=== PATIENT | male | born 1945 | race Caucasian/White ===

== ENCOUNTER 2022-07-10 20:30 | Emergency (ER) | payer MEDICARE, OTHER, MEDICAID ==
[2022-07-10] MEDS ORDERED: Ondansetron 4 MG/2 ML SDV IVPUSH ONE (20:42)
[2022-07-10] MEDS ORDERED: Sodium Chloride 0.9% 10 ML Syringe FLUSH PRN (20:42)
[2022-07-10] MEDS ORDERED: Sodium Chloride 0.9% 2,000 ML IV SCH (20:45)
[2022-07-10 22:32] LABS: CORONAVIRUS COVID-19 NAA NEGATIVE (NEGATIVE)
[2022-07-10] MEDS ORDERED: Azithromycin 500 MG in Sodium Chloride 0.9% 250 ML IV ONE (22:58)
[2022-07-10] MEDS ORDERED: Vancomycin 2 GM in Sodium Chloride 0.9% 500 ML IV ONE (22:59)
[2022-07-10] MEDS ORDERED: Levofloxacin/Dextrose 5%-Water 750 MG in Premix Bag 1 BAG IV ONE (23:01)
[2022-07-10] MEDS ORDERED: Sodium Chloride 0.9% 1,000 ML IV SCH (23:15)
[2022-07-11] MEDS ORDERED: Norepinephrine 4 MG in Dextrose 5% in Water 246 ML IV SCH ×2 (00:30)
== END 2022-07-11 02:25 ==
LOC: JD.ED 20:30
DX: I95.89 Other hypotension (principal); R65.21 Severe sepsis with septic shock; J18.9 Pneumonia, unspecified organism; I10 Essential (primary) hypertension; J44.9 Chronic obstructive pulmonary disease, unspecified; K21.9 Gastro-esophageal reflux disease without esophagitis; E11.9 Type 2 diabetes mellitus without complications; N28.9 Disorder of kidney and ureter, unspecified; Z79.4 Long term (current) use of insulin; Z20.822 Contact with and (suspected) exposure to COVID-19; Z79.899 Other long term (current) drug therapy
CPT/HCPCS: 0241U; 36415; 36556; 71045; 74176; 80053; 83605; 83690; 84484; 85025; 85610; 85730; 86140; 86850; 86900; 86901; 87040; 93005; 96361; 96365; 96366; 96368; 96375; 99285; J0456; J1956; J2405; J3370; J3490; J7030; J7040; J7050; J7060; 93010; 99291

== ENCOUNTER 2022-08-10 12:51 | Emergency (ER) | payer MEDICARE, MEDICAID ==
[2022-08-10] MEDS ORDERED: Sodium Chloride 0.9% 1,000 ML IV STA (13:50)
[2022-08-10] MEDS ORDERED: methylPREDNISolone Sodium Succinate 125 MG/2 ML SDV IVPUSH PRN (16:07)
[2022-08-10] MEDS ORDERED: Famotidine 20 MG/2 ML SDV IVPUSH PRN (16:07)
[2022-08-10] MEDS ORDERED: EPINEPHrine 1 MG/ML SDV IM PRN (16:07)
[2022-08-10] MEDS ORDERED: diphenhydrAMINE 50 MG/ML SDV IVPUSH PRN (16:07)
[2022-08-10] MEDS ORDERED: Sodium Chloride 0.9% 10 ML Syringe FLUSH SCH (16:15)
== END 2022-08-10 18:16 | disposition home or self-care (01) ==
LOC: JD.ED 12:51
DX: U07.1 COVID-19 (principal); J44.9 Chronic obstructive pulmonary disease, unspecified; E78.00 Pure hypercholesterolemia, unspecified; I10 Essential (primary) hypertension; E11.9 Type 2 diabetes mellitus without complications; Z88.1 Allergy status to other antibiotic agents; Z88.0 Allergy status to penicillin; Z88.6 Allergy status to analgesic agent; Z88.8 Allergy status to other drugs, medicaments and biological substances; Z79.4 Long term (current) use of insulin; Z79.899 Other long term (current) drug therapy
CPT/HCPCS: 36415; 51701; 71045; 80053; 81001; 83605; 83735; 85025; 86140; 87040; 96360; 96361; 96372; 99285; J7030; M0222; Q0222; U0002; 99284

== ENCOUNTER 2022-08-27 10:11 | Emergency (ER) | payer MEDICARE, MEDICAID ==
[2022-08-27] MEDS ORDERED: Ondansetron 4 MG/2 ML SDV IVPUSH ONE (10:57)
[2022-08-27] MEDS ORDERED: Sodium Chloride 0.9% 10 ML Syringe FLUSH PRN (10:57)
[2022-08-27] MEDS ORDERED: Sodium Chloride 0.9% 1,000 ML IV SCH (11:00)
[2022-08-27 11:19] LABS: ESTIMATED GFR 77 mL/min (>60)
[2022-08-27 12:13] LABS: CORONAVIRUS COVID-19 NAA POSITIVE (NEGATIVE)
[2022-08-27] MEDS ORDERED: EPINEPHrine 1 MG/ML SDV IM PRN (13:12)
[2022-08-27] MEDS ORDERED: diphenhydrAMINE 50 MG/ML SDV IVPUSH PRN (13:12)
[2022-08-27] MEDS ORDERED: Famotidine 20 MG/2 ML SDV IVPUSH PRN (13:12)
[2022-08-27] MEDS ORDERED: methylPREDNISolone Sodium Succinate 125 MG/2 ML SDV IVPUSH PRN (13:12)
[2022-08-27] MEDS ORDERED: Sodium Chloride 0.9% 10 ML Syringe FLUSH SCH (13:15)
== END 2022-08-27 14:00 | disposition home or self-care (01) ==
LOC: JD.ED 10:11
DX: U07.1 COVID-19 (principal); E78.00 Pure hypercholesterolemia, unspecified; I10 Essential (primary) hypertension; J44.9 Chronic obstructive pulmonary disease, unspecified; K21.9 Gastro-esophageal reflux disease without esophagitis; M10.9 Gout, unspecified; E11.9 Type 2 diabetes mellitus without complications; E03.9 Hypothyroidism, unspecified; Z88.8 Allergy status to other drugs, medicaments and biological substances; Z88.1 Allergy status to other antibiotic agents; Z88.0 Allergy status to penicillin; Z79.4 Long term (current) use of insulin; Z79.899 Other long term (current) drug therapy
CPT/HCPCS: 0241U; 36415; 80053; 82947; 83690; 84484; 85025; 85610; 85730; 86140; 93005; 96361; 96374; 99285; J2405; J3490; J7030; M0222; Q0222

== ENCOUNTER 2022-09-04 15:00 | Inpatient (IN) | payer MEDICARE, MEDICAID ==
[2022-09-05] MEDS ORDERED: busPIRone 15 MG Tab PO ONE (16:42)
[2022-09-05] MEDS ORDERED: Donepezil 10 MG Tab PO ONE (16:44)
[2022-09-05] MEDS ORDERED: QUEtiapine 25 MG Tab PO ONE (16:45)
[2022-09-05] MEDS ORDERED: Acetaminophen Soln 650 MG/20.3 ML UD Cup PO PRN (19:05)
[2022-09-05] MEDS: Enoxaparin 40 MG/0.4 ML Syringe SUBCUT SCH (20:49)
[2022-09-05] MEDS: Metoprolol Tartrate 25 MG Tab PO SCH (20:50)
[2022-09-05] MEDS: Montelukast 10 MG Tab PO SCH (20:50)
[2022-09-05] MEDS: atorvaSTATin 40 MG Tab PO SCH (20:50)
[2022-09-05] MEDS: QUEtiapine 25 MG Tab PO SCH (20:52)
[2022-09-05] MEDS: Acetaminophen 325 MG Tab PO SCH (20:53)
[2022-09-05] MEDS: Donepezil 10 MG Tab PO SCH (20:53)
[2022-09-05] MEDS ORDERED: Gabapentin 600 MG Tab PO SCH (21:00)
[2022-09-05] MEDS ORDERED: Non-Formulary Medication 1 Each (Fluticasone Propion/Salmeterol [Advair Hfa 230-21 Mcg Inh INH SCH (21:00)
[2022-09-05] MEDS ORDERED: rOPINIRole 1 MG Tab PO SCH (21:00)
[2022-09-05] MEDS: Formoterol/Mometasone 200-5 MCG 8.8 GM Inhaler IH SCH (21:39)
[2022-09-06] MEDS: rOPINIRole 1 MG Tab PO SCH ×3 (05:13→21:05)
[2022-09-06] MEDS: Levothyroxine 75 MCG Tab PO SCH (05:13)
[2022-09-06] MEDS: Pantoprazole 40 MG Tab.CR PO SCH (06:01)
[2022-09-06] MEDS: Tiotropium Bromide 4 GM Inhalation Spray (2.5mcg/1 dose; 10 doses) INH SCH (08:07)
[2022-09-06] MEDS: Formoterol/Mometasone 200-5 MCG 8.8 GM Inhaler IH SCH ×2 (08:08→21:10)
[2022-09-06] MEDS: Isosorbide Mononitrate 30 MG Tab.ER PO SCH (08:21)
[2022-09-06] MEDS: Acetaminophen 325 MG Tab PO SCH ×2 (08:24→21:22)
[2022-09-06] MEDS: Cholecalciferol (Vitamin D3) 25 MCG Tab PO SCH (08:25)
[2022-09-06] MEDS: Metoprolol Tartrate 25 MG Tab PO SCH ×2 (08:26→21:04)
[2022-09-06] MEDS: Insulin Lispro 100 Unit/ML 3 ML KwikPen SUBCUT SCH ×4 (08:32→20:55)
[2022-09-06 08:56] LABS: VITAMIN D,25-HYDROXY 23.8 ng/ml (30.0-100.0)
[2022-09-06] MEDS ORDERED: Non-Formulary Medication 1 Each (Umeclidinium Bromide 62.5 MCG Blst.W.Dev) INH SCH (09:00)
[2022-09-06] MEDS ORDERED: QUEtiapine 25 MG Tab PO SCH (09:00)
[2022-09-06] MEDS ORDERED: Gabapentin 100 MG Cap PO SCH (09:00)
[2022-09-06] MEDS ORDERED: Gabapentin 600 MG Tab PO SCH (09:00)
[2022-09-06] MEDS ORDERED: Ondansetron 4 MG Tab.DIS PO PRN (09:59)
[2022-09-06] MEDS ORDERED: Magnesium Sulfate (4.06 MEQ/ML) 5 GM/10 ML SDV IV STA (10:06)
[2022-09-06] MEDS ORDERED: Magnesium Sulfate/Water 2 GM in Premix Bag 1 BAG IV ONE (10:15)
[2022-09-06] MEDS: Magnesium Oxide 400 MG Tab PO SCH (10:29)
[2022-09-06] MEDS ORDERED: Scopolamine 1.5 MG Transdermal Patch TRDERM PRN (15:39)
[2022-09-06] MEDS ORDERED: Citalopram 10 MG Tab PO ONE (16:43)
[2022-09-06] MEDS: Enoxaparin 40 MG/0.4 ML Syringe SUBCUT SCH ×2 (21:04→21:23)
[2022-09-06] MEDS: QUEtiapine 25 MG Tab PO SCH (21:04)
[2022-09-06] MEDS: Donepezil 10 MG Tab PO SCH (21:05)
[2022-09-06] MEDS: Gabapentin 100 MG Cap PO SCH (21:05)
[2022-09-06] MEDS: Gabapentin 600 MG Tab PO SCH (21:05)
[2022-09-06] MEDS: Montelukast 10 MG Tab PO SCH (21:05)
[2022-09-06] MEDS: atorvaSTATin 40 MG Tab PO SCH (21:06)
[2022-09-07] MEDS: Levothyroxine 75 MCG Tab PO SCH (06:13)
[2022-09-07] MEDS: Pantoprazole 40 MG Tab.CR PO SCH (06:13)
[2022-09-07] MEDS: Formoterol/Mometasone 200-5 MCG 8.8 GM Inhaler IH SCH ×2 (09:06→20:58)
[2022-09-07] MEDS: Tiotropium Bromide 4 GM Inhalation Spray (2.5mcg/1 dose; 10 doses) INH SCH (09:06)
[2022-09-07] MEDS: Insulin Lispro 100 Unit/ML 3 ML KwikPen SUBCUT SCH ×4 (09:44→20:19)
[2022-09-07] MEDS: Citalopram 10 MG Tab PO SCH (09:47)
[2022-09-07] MEDS: Isosorbide Mononitrate 30 MG Tab.ER PO SCH (09:48)
[2022-09-07] MEDS: Metoprolol Tartrate 25 MG Tab PO SCH ×2 (09:49→20:20)
[2022-09-07] MEDS: Magnesium Oxide 400 MG Tab PO SCH (09:50)
[2022-09-07] MEDS: Acetaminophen 325 MG Tab PO SCH ×2 (09:51→20:15)
[2022-09-07] MEDS: Cholecalciferol (Vitamin D3) 25 MCG Tab PO SCH (09:52)
[2022-09-07] MEDS: Gabapentin 100 MG Cap PO SCH (20:14)
[2022-09-07] MEDS: QUEtiapine 100 MG Tab PO SCH (20:14)
[2022-09-07] MEDS: Montelukast 10 MG Tab PO SCH (20:15)
[2022-09-07] MEDS: atorvaSTATin 40 MG Tab PO SCH (20:15)
[2022-09-07] MEDS: Donepezil 10 MG Tab PO SCH (20:15)
[2022-09-07] MEDS: rOPINIRole 1 MG Tab PO SCH (20:15)
[2022-09-07] MEDS: Gabapentin 600 MG Tab PO SCH (20:15)
[2022-09-07] MEDS: Enoxaparin 40 MG/0.4 ML Syringe SUBCUT SCH (20:16)
[2022-09-08] MEDS: Levothyroxine 75 MCG Tab PO SCH (06:27)
[2022-09-08] MEDS: Pantoprazole 40 MG Tab.CR PO SCH (06:27)
[2022-09-08] MEDS: Insulin Lispro 100 Unit/ML 3 ML KwikPen SUBCUT SCH ×5 (07:42→22:13)
[2022-09-08] MEDS: Acetaminophen 325 MG Tab PO SCH ×2 (08:29→22:08)
[2022-09-08] MEDS: Metoprolol Tartrate 25 MG Tab PO SCH ×2 (08:31→22:10)
[2022-09-08] MEDS: Magnesium Oxide 400 MG Tab PO SCH (08:31)
[2022-09-08] MEDS: Cholecalciferol (Vitamin D3) 25 MCG Tab PO SCH (08:32)
[2022-09-08] MEDS: Isosorbide Mononitrate 30 MG Tab.ER PO SCH (08:33)
[2022-09-08] MEDS: Citalopram 10 MG Tab PO SCH (08:34)
[2022-09-08] MEDS: Tiotropium Bromide 4 GM Inhalation Spray (2.5mcg/1 dose; 10 doses) INH SCH (08:38)
[2022-09-08] MEDS: Formoterol/Mometasone 200-5 MCG 8.8 GM Inhaler IH SCH ×2 (08:38→21:34)
[2022-09-08] MEDS: Enoxaparin 40 MG/0.4 ML Syringe SUBCUT SCH (22:07)
[2022-09-08] MEDS: Donepezil 10 MG Tab PO SCH (22:08)
[2022-09-08] MEDS: QUEtiapine 100 MG Tab PO SCH (22:08)
[2022-09-08] MEDS: Gabapentin 100 MG Cap PO SCH (22:09)
[2022-09-08] MEDS: Montelukast 10 MG Tab PO SCH (22:09)
[2022-09-08] MEDS: Gabapentin 600 MG Tab PO SCH (22:10)
[2022-09-08] MEDS: atorvaSTATin 40 MG Tab PO SCH (22:10)
[2022-09-08] MEDS: rOPINIRole 1 MG Tab PO SCH (22:10)
[2022-09-09] MEDS: Pantoprazole 40 MG Tab.CR PO SCH (08:24)
[2022-09-09] MEDS: Levothyroxine 125 MCG Tab PO SCH (08:24)
[2022-09-09] MEDS: Tiotropium Bromide 4 GM Inhalation Spray (2.5mcg/1 dose; 10 doses) INH SCH (10:00)
[2022-09-09] MEDS: Formoterol/Mometasone 200-5 MCG 8.8 GM Inhaler IH SCH ×2 (10:00→22:56)
[2022-09-09] MEDS: Cholecalciferol (Vitamin D3) 25 MCG Tab PO SCH (10:11)
[2022-09-09] MEDS: Acetaminophen 325 MG Tab PO SCH ×2 (10:11→20:52)
[2022-09-09] MEDS: Isosorbide Mononitrate 30 MG Tab.ER PO SCH (10:12)
[2022-09-09] MEDS: Citalopram 10 MG Tab PO SCH (10:13)
[2022-09-09] MEDS: Metoprolol Tartrate 25 MG Tab PO SCH ×2 (10:13→20:54)
[2022-09-09] MEDS: Magnesium Oxide 400 MG Tab PO SCH (10:14)
[2022-09-09] MEDS: Insulin Lispro 100 Unit/ML 3 ML KwikPen SUBCUT SCH ×4 (10:25→20:50)
[2022-09-09] MEDS: Gabapentin 600 MG Tab PO SCH (20:53)
[2022-09-09] MEDS: atorvaSTATin 40 MG Tab PO SCH (20:53)
[2022-09-09] MEDS: rOPINIRole 1 MG Tab PO SCH (20:53)
[2022-09-09] MEDS: Montelukast 10 MG Tab PO SCH (20:54)
[2022-09-09] MEDS: Gabapentin 100 MG Cap PO SCH (20:54)
[2022-09-09] MEDS: Donepezil 10 MG Tab PO SCH (20:58)
[2022-09-09] MEDS: Enoxaparin 40 MG/0.4 ML Syringe SUBCUT SCH (20:59)
[2022-09-09] MEDS: QUEtiapine 100 MG Tab PO SCH (20:59)
[2022-09-10] MEDS: Levothyroxine 125 MCG Tab PO SCH (07:11)
[2022-09-10] MEDS: Pantoprazole 40 MG Tab.CR PO SCH (07:11)
[2022-09-10] MEDS: Metoprolol Tartrate 25 MG Tab PO SCH ×2 (09:17→20:28)
[2022-09-10] MEDS: Formoterol/Mometasone 200-5 MCG 8.8 GM Inhaler IH SCH ×2 (09:28→21:03)
[2022-09-10] MEDS: Insulin Lispro 100 Unit/ML 3 ML KwikPen SUBCUT SCH ×4 (09:28→21:30)
[2022-09-10] MEDS: Tiotropium Bromide 4 GM Inhalation Spray (2.5mcg/1 dose; 10 doses) INH SCH (09:28)
[2022-09-10] MEDS: Magnesium Oxide 400 MG Tab PO SCH (09:29)
[2022-09-10] MEDS: Citalopram 10 MG Tab PO SCH (09:29)
[2022-09-10] MEDS: Isosorbide Mononitrate 30 MG Tab.ER PO SCH (09:29)
[2022-09-10] MEDS: Acetaminophen 325 MG Tab PO SCH ×2 (09:30→20:28)
[2022-09-10] MEDS: Cholecalciferol (Vitamin D3) 25 MCG Tab PO SCH (09:30)
[2022-09-10] MEDS: QUEtiapine 100 MG Tab PO SCH (20:22)
[2022-09-10] MEDS: Donepezil 10 MG Tab PO SCH (20:23)
[2022-09-10] MEDS: rOPINIRole 1 MG Tab PO SCH (20:23)
[2022-09-10] MEDS: Gabapentin 100 MG Cap PO SCH (20:24)
[2022-09-10] MEDS: atorvaSTATin 40 MG Tab PO SCH (20:27)
[2022-09-10] MEDS: Gabapentin 600 MG Tab PO SCH (20:27)
[2022-09-10] MEDS: Montelukast 10 MG Tab PO SCH (20:30)
[2022-09-10] MEDS: Enoxaparin 40 MG/0.4 ML Syringe SUBCUT SCH ×2 (20:31→20:32)
[2022-09-11] MEDS: Pantoprazole 40 MG Tab.CR PO SCH (06:29)
[2022-09-11] MEDS: Levothyroxine 125 MCG Tab PO SCH (06:29)
[2022-09-11] MEDS: Tiotropium Bromide 4 GM Inhalation Spray (2.5mcg/1 dose; 10 doses) INH SCH (09:24)
[2022-09-11] MEDS: Formoterol/Mometasone 200-5 MCG 8.8 GM Inhaler IH SCH ×2 (09:24→21:08)
[2022-09-11] MEDS: Insulin Lispro 100 Unit/ML 3 ML KwikPen SUBCUT SCH ×3 (09:28→18:47)
[2022-09-11] MEDS: Magnesium Oxide 400 MG Tab PO SCH (09:29)
[2022-09-11] MEDS: Isosorbide Mononitrate 30 MG Tab.ER PO SCH (09:29)
[2022-09-11] MEDS: Cholecalciferol (Vitamin D3) 25 MCG Tab PO SCH (09:30)
[2022-09-11] MEDS: Metoprolol Tartrate 25 MG Tab PO SCH ×2 (09:31→20:33)
[2022-09-11] MEDS: Citalopram 10 MG Tab PO SCH (09:31)
[2022-09-11] MEDS: Acetaminophen 325 MG Tab PO SCH ×2 (09:31→20:29)
[2022-09-11] MEDS: atorvaSTATin 40 MG Tab PO SCH (20:29)
[2022-09-11] MEDS: rOPINIRole 1 MG Tab PO SCH (20:29)
[2022-09-11] MEDS: QUEtiapine 100 MG Tab PO SCH (20:29)
[2022-09-11] MEDS: Gabapentin 600 MG Tab PO SCH (20:29)
[2022-09-11] MEDS: Gabapentin 100 MG Cap PO SCH (20:29)
[2022-09-11] MEDS: Donepezil 10 MG Tab PO SCH (20:29)
[2022-09-11] MEDS: Enoxaparin 40 MG/0.4 ML Syringe SUBCUT SCH ×2 (20:33→20:40)
[2022-09-11] MEDS: Montelukast 10 MG Tab PO SCH (20:39)
[2022-09-12] MEDS: Tiotropium Bromide 4 GM Inhalation Spray (2.5mcg/1 dose; 10 doses) INH SCH (07:59)
[2022-09-12] MEDS: Formoterol/Mometasone 200-5 MCG 8.8 GM Inhaler IH SCH ×2 (07:59→21:07)
[2022-09-12] MEDS: Insulin Lispro 100 Unit/ML 3 ML KwikPen SUBCUT SCH ×5 (09:11→22:40)
[2022-09-12] MEDS: Citalopram 10 MG Tab PO SCH (09:12)
[2022-09-12] MEDS: Pantoprazole 40 MG Tab.CR PO SCH (09:12)
[2022-09-12] MEDS: Levothyroxine 125 MCG Tab PO SCH (09:12)
[2022-09-12] MEDS: Metoprolol Tartrate 25 MG Tab PO SCH ×2 (09:13→20:42)
[2022-09-12] MEDS: Acetaminophen 325 MG Tab PO SCH ×2 (09:13→20:46)
[2022-09-12] MEDS: Isosorbide Mononitrate 30 MG Tab.ER PO SCH (09:13)
[2022-09-12] MEDS: Magnesium Oxide 400 MG Tab PO SCH (09:13)
[2022-09-12] MEDS: Cholecalciferol (Vitamin D3) 25 MCG Tab PO SCH (09:14)
[2022-09-12] MEDS: Gabapentin 100 MG Cap PO SCH (20:41)
[2022-09-12] MEDS: Enoxaparin 40 MG/0.4 ML Syringe SUBCUT SCH (20:41)
[2022-09-12] MEDS: Gabapentin 600 MG Tab PO SCH (20:41)
[2022-09-12] MEDS: Montelukast 10 MG Tab PO SCH (20:41)
[2022-09-12] MEDS: rOPINIRole 1 MG Tab PO SCH (20:41)
[2022-09-12] MEDS: Donepezil 10 MG Tab PO SCH (20:46)
[2022-09-12] MEDS: QUEtiapine 100 MG Tab PO SCH (20:47)
[2022-09-12] MEDS: atorvaSTATin 40 MG Tab PO SCH (20:47)
[2022-09-13] MEDS: Levothyroxine 125 MCG Tab PO SCH (05:58)
[2022-09-13] MEDS: Pantoprazole 40 MG Tab.CR PO SCH ×2 (05:58→07:43)
[2022-09-13] MEDS: Insulin Lispro 100 Unit/ML 3 ML KwikPen SUBCUT SCH ×3 (07:58→18:14)
[2022-09-13] MEDS: Isosorbide Mononitrate 30 MG Tab.ER PO SCH (08:00)
[2022-09-13] MEDS: Acetaminophen 325 MG Tab PO SCH ×2 (08:02→20:55)
[2022-09-13] MEDS: Metoprolol Tartrate 25 MG Tab PO SCH ×2 (08:03→20:56)
[2022-09-13] MEDS: Citalopram 10 MG Tab PO SCH (08:03)
[2022-09-13] MEDS: Cholecalciferol (Vitamin D3) 25 MCG Tab PO SCH (08:03)
[2022-09-13] MEDS: Magnesium Oxide 400 MG Tab PO SCH (08:03)
[2022-09-13] MEDS: Tiotropium Bromide 4 GM Inhalation Spray (2.5mcg/1 dose; 10 doses) INH SCH (08:10)
[2022-09-13] MEDS: Formoterol/Mometasone 200-5 MCG 8.8 GM Inhaler IH SCH ×2 (08:10→20:19)
[2022-09-13] MEDS: Gabapentin 600 MG Tab PO SCH (20:55)
[2022-09-13] MEDS: QUEtiapine 100 MG Tab PO SCH (20:59)
[2022-09-13] MEDS: rOPINIRole 1 MG Tab PO SCH (21:00)
[2022-09-13] MEDS ORDERED: Insulin Glargine,Human Rec. Analog 100 Units/ML 3 ML Pen SUBCUT SCH (21:00)
[2022-09-13] MEDS: atorvaSTATin 40 MG Tab PO SCH (21:00)
[2022-09-13] MEDS: Montelukast 10 MG Tab PO SCH (21:00)
[2022-09-13] MEDS: Donepezil 10 MG Tab PO SCH (21:00)
[2022-09-13] MEDS: Enoxaparin 40 MG/0.4 ML Syringe SUBCUT SCH (21:01)
[2022-09-13] MEDS: Gabapentin 100 MG Cap PO SCH (21:09)
[2022-09-13] MEDS ORDERED: rOPINIRole 1 MG Tab PO ONE (22:00)
[2022-09-14] MEDS: Acetaminophen 325 MG Tab PO SCH ×2 (08:31→20:00)
[2022-09-14] MEDS: Pantoprazole 40 MG Tab.CR PO SCH (08:33)
[2022-09-14] MEDS: Magnesium Oxide 400 MG Tab PO SCH (08:33)
[2022-09-14] MEDS: Levothyroxine 125 MCG Tab PO SCH (08:33)
[2022-09-14] MEDS: Isosorbide Mononitrate 30 MG Tab.ER PO SCH (08:34)
[2022-09-14] MEDS: Citalopram 10 MG Tab PO SCH (08:34)
[2022-09-14] MEDS: Cholecalciferol (Vitamin D3) 25 MCG Tab PO SCH (08:34)
[2022-09-14] MEDS: Metoprolol Tartrate 25 MG Tab PO SCH ×2 (08:36→20:02)
[2022-09-14] MEDS: Insulin Lispro 100 Unit/ML 3 ML KwikPen SUBCUT SCH ×4 (08:36→20:14)
[2022-09-14] MEDS ORDERED: Insulin Glargine,Human Rec. Analog 100 Units/ML 3 ML Pen SUBCUT SCH ×2 (09:00)
[2022-09-14] MEDS: Tiotropium Bromide 4 GM Inhalation Spray (2.5mcg/1 dose; 10 doses) INH SCH (09:30)
[2022-09-14] MEDS: Formoterol/Mometasone 200-5 MCG 8.8 GM Inhaler IH SCH ×2 (09:30→20:49)
[2022-09-14] MEDS ORDERED: Insulin Aspart Protamine/Insulin Aspart 70-30 100 Units/ML 10 ML Vial SUBCUT SCH (11:00)
[2022-09-14] MEDS ORDERED: Insulin Lispro 100 Unit/ML 3 ML KwikPen SUBCUT SCH (11:30)
[2022-09-14] MEDS: Enoxaparin 40 MG/0.4 ML Syringe SUBCUT SCH (19:59)
[2022-09-14] MEDS: atorvaSTATin 40 MG Tab PO SCH (20:02)
[2022-09-14] MEDS: QUEtiapine 100 MG Tab PO SCH (20:02)
[2022-09-14] MEDS: Gabapentin 600 MG Tab PO SCH (20:03)
[2022-09-14] MEDS: rOPINIRole 1 MG Tab PO SCH (20:03)
[2022-09-14] MEDS: Gabapentin 100 MG Cap PO SCH (20:03)
[2022-09-14] MEDS: Montelukast 10 MG Tab PO SCH (20:03)
[2022-09-14] MEDS: Donepezil 10 MG Tab PO SCH (20:03)
[2022-09-15] MEDS: Levothyroxine 125 MCG Tab PO SCH (07:55)
[2022-09-15] MEDS: Insulin Lispro 100 Unit/ML 3 ML KwikPen SUBCUT SCH ×4 (07:56→22:22)
[2022-09-15] MEDS: Pantoprazole 40 MG Tab.CR PO SCH (07:56)
[2022-09-15] MEDS: Formoterol/Mometasone 200-5 MCG 8.8 GM Inhaler IH SCH ×2 (08:27→20:45)
[2022-09-15] MEDS: Tiotropium Bromide 4 GM Inhalation Spray (2.5mcg/1 dose; 10 doses) INH SCH (08:27)
[2022-09-15] MEDS: Citalopram 10 MG Tab PO SCH (10:44)
[2022-09-15] MEDS: Acetaminophen 325 MG Tab PO SCH ×2 (10:44→22:24)
[2022-09-15] MEDS: Cholecalciferol (Vitamin D3) 25 MCG Tab PO SCH (10:45)
[2022-09-15] MEDS: Isosorbide Mononitrate 30 MG Tab.ER PO SCH (10:45)
[2022-09-15] MEDS: Magnesium Oxide 400 MG Tab PO SCH (10:45)
[2022-09-15] MEDS: Metoprolol Tartrate 25 MG Tab PO SCH ×2 (10:46→22:26)
[2022-09-15] MEDS: QUEtiapine 100 MG Tab PO SCH (22:23)
[2022-09-15] MEDS: Montelukast 10 MG Tab PO SCH (22:23)
[2022-09-15] MEDS: Gabapentin 600 MG Tab PO SCH (22:24)
[2022-09-15] MEDS: Gabapentin 100 MG Cap PO SCH (22:24)
[2022-09-15] MEDS: Donepezil 10 MG Tab PO SCH (22:25)
[2022-09-15] MEDS: rOPINIRole 1 MG Tab PO SCH (22:26)
[2022-09-15] MEDS: atorvaSTATin 40 MG Tab PO SCH (22:26)
[2022-09-15] MEDS: Enoxaparin 40 MG/0.4 ML Syringe SUBCUT SCH (22:29)
[2022-09-16] MEDS: Pantoprazole 40 MG Tab.CR PO SCH (06:47)
[2022-09-16] MEDS: Levothyroxine 125 MCG Tab PO SCH (06:47)
[2022-09-16] MEDS: Formoterol/Mometasone 200-5 MCG 8.8 GM Inhaler IH SCH ×2 (09:23→20:00)
[2022-09-16] MEDS: Tiotropium Bromide 4 GM Inhalation Spray (2.5mcg/1 dose; 10 doses) INH SCH (09:24)
[2022-09-16] MEDS: Isosorbide Mononitrate 30 MG Tab.ER PO SCH (10:09)
[2022-09-16] MEDS: Insulin Lispro 100 Unit/ML 3 ML KwikPen SUBCUT SCH ×4 (10:09→20:52)
[2022-09-16] MEDS: Citalopram 10 MG Tab PO SCH (10:09)
[2022-09-16] MEDS: Magnesium Oxide 400 MG Tab PO SCH (10:10)
[2022-09-16] MEDS: Metoprolol Tartrate 25 MG Tab PO SCH ×2 (10:10→21:13)
[2022-09-16] MEDS: Cholecalciferol (Vitamin D3) 25 MCG Tab PO SCH (10:10)
[2022-09-16] MEDS: Acetaminophen 325 MG Tab PO SCH ×2 (10:10→21:01)
[2022-09-16] MEDS: rOPINIRole 1 MG Tab PO SCH (20:59)
[2022-09-16] MEDS: Gabapentin 100 MG Cap PO SCH (21:01)
[2022-09-16] MEDS: Gabapentin 600 MG Tab PO SCH (21:01)
[2022-09-16] MEDS: Montelukast 10 MG Tab PO SCH (21:02)
[2022-09-16] MEDS: Enoxaparin 40 MG/0.4 ML Syringe SUBCUT SCH (21:03)
[2022-09-16] MEDS: atorvaSTATin 40 MG Tab PO SCH (21:04)
[2022-09-16] MEDS: QUEtiapine 100 MG Tab PO SCH (21:11)
[2022-09-16] MEDS: Donepezil 10 MG Tab PO SCH (21:13)
[2022-09-17] MEDS: Levothyroxine 125 MCG Tab PO SCH (06:47)
[2022-09-17] MEDS: Pantoprazole 40 MG Tab.CR PO SCH (06:47)
[2022-09-17] MEDS: Insulin Lispro 100 Unit/ML 3 ML KwikPen SUBCUT SCH ×4 (06:56→22:23)
[2022-09-17] MEDS: Cholecalciferol (Vitamin D3) 25 MCG Tab PO SCH (08:02)
[2022-09-17] MEDS: Magnesium Oxide 400 MG Tab PO SCH (08:02)
[2022-09-17] MEDS: Isosorbide Mononitrate 30 MG Tab.ER PO SCH (08:03)
[2022-09-17] MEDS: Acetaminophen 325 MG Tab PO SCH ×2 (08:03→22:19)
[2022-09-17] MEDS: Citalopram 10 MG Tab PO SCH (08:03)
[2022-09-17] MEDS: Metoprolol Tartrate 25 MG Tab PO SCH ×2 (08:06→22:23)
[2022-09-17] MEDS: Formoterol/Mometasone 200-5 MCG 8.8 GM Inhaler IH SCH ×2 (08:14→20:42)
[2022-09-17] MEDS: Tiotropium Bromide 4 GM Inhalation Spray (2.5mcg/1 dose; 10 doses) INH SCH (08:14)
[2022-09-17] MEDS: Gabapentin 100 MG Cap PO SCH (22:18)
[2022-09-17] MEDS: Montelukast 10 MG Tab PO SCH (22:18)
[2022-09-17] MEDS: atorvaSTATin 40 MG Tab PO SCH (22:18)
[2022-09-17] MEDS: rOPINIRole 1 MG Tab PO SCH (22:18)
[2022-09-17] MEDS: Gabapentin 600 MG Tab PO SCH (22:19)
[2022-09-17] MEDS: Donepezil 10 MG Tab PO SCH (22:19)
[2022-09-17] MEDS: QUEtiapine 100 MG Tab PO SCH (22:19)
[2022-09-17] MEDS: Enoxaparin 40 MG/0.4 ML Syringe SUBCUT SCH (22:27)
[2022-09-18] MEDS: Levothyroxine 125 MCG Tab PO SCH (06:31)
[2022-09-18] MEDS: Pantoprazole 40 MG Tab.CR PO SCH (06:31)
[2022-09-18] MEDS: Insulin Lispro 100 Unit/ML 3 ML KwikPen SUBCUT SCH ×4 (08:05→20:46)
[2022-09-18] MEDS: Magnesium Oxide 400 MG Tab PO SCH (08:06)
[2022-09-18] MEDS: Acetaminophen 325 MG Tab PO SCH ×2 (08:06→20:45)
[2022-09-18] MEDS: Isosorbide Mononitrate 30 MG Tab.ER PO SCH (08:06)
[2022-09-18] MEDS: Citalopram 10 MG Tab PO SCH (08:06)
[2022-09-18] MEDS: Cholecalciferol (Vitamin D3) 25 MCG Tab PO SCH (08:07)
[2022-09-18] MEDS: Metoprolol Tartrate 25 MG Tab PO SCH ×2 (08:07→20:44)
[2022-09-18] MEDS: Formoterol/Mometasone 200-5 MCG 8.8 GM Inhaler IH SCH ×2 (08:31→20:35)
[2022-09-18] MEDS: Tiotropium Bromide 4 GM Inhalation Spray (2.5mcg/1 dose; 10 doses) INH SCH (08:31)
[2022-09-18] MEDS: rOPINIRole 1 MG Tab PO SCH (20:41)
[2022-09-18] MEDS: Gabapentin 100 MG Cap PO SCH (20:44)
[2022-09-18] MEDS: Gabapentin 600 MG Tab PO SCH (20:44)
[2022-09-18] MEDS: Montelukast 10 MG Tab PO SCH (20:45)
[2022-09-18] MEDS: QUEtiapine 100 MG Tab PO SCH (20:45)
[2022-09-18] MEDS: Donepezil 10 MG Tab PO SCH (20:45)
[2022-09-18] MEDS: Enoxaparin 40 MG/0.4 ML Syringe SUBCUT SCH (20:46)
[2022-09-18] MEDS: atorvaSTATin 40 MG Tab PO SCH (20:46)
[2022-09-19] MEDS: Levothyroxine 125 MCG Tab PO SCH (07:31)
[2022-09-19] MEDS: Pantoprazole 40 MG Tab.CR PO SCH (07:31)
[2022-09-19] MEDS: Tiotropium Bromide 4 GM Inhalation Spray (2.5mcg/1 dose; 10 doses) INH SCH (08:14)
[2022-09-19] MEDS: Formoterol/Mometasone 200-5 MCG 8.8 GM Inhaler IH SCH ×2 (08:14→20:28)
[2022-09-19] MEDS: Insulin Lispro 100 Unit/ML 3 ML KwikPen SUBCUT SCH ×4 (08:42→21:34)
[2022-09-19] MEDS: Citalopram 10 MG Tab PO SCH (08:43)
[2022-09-19] MEDS: Metoprolol Tartrate 25 MG Tab PO SCH ×2 (08:43→21:30)
[2022-09-19] MEDS: Isosorbide Mononitrate 30 MG Tab.ER PO SCH (08:45)
[2022-09-19] MEDS: Acetaminophen 325 MG Tab PO SCH ×2 (08:46→21:28)
[2022-09-19] MEDS: Magnesium Oxide 400 MG Tab PO SCH (08:46)
[2022-09-19] MEDS: Cholecalciferol (Vitamin D3) 25 MCG Tab PO SCH (08:46)
[2022-09-19] MEDS: Gabapentin 100 MG Cap PO SCH (21:28)
[2022-09-19] MEDS: QUEtiapine 100 MG Tab PO SCH (21:29)
[2022-09-19] MEDS: Gabapentin 600 MG Tab PO SCH (21:29)
[2022-09-19] MEDS: rOPINIRole 1 MG Tab PO SCH (21:29)
[2022-09-19] MEDS: Donepezil 10 MG Tab PO SCH (21:29)
[2022-09-19] MEDS: atorvaSTATin 40 MG Tab PO SCH (21:30)
[2022-09-19] MEDS: Enoxaparin 40 MG/0.4 ML Syringe SUBCUT SCH (21:35)
[2022-09-19] MEDS: Montelukast 10 MG Tab PO SCH (21:36)
[2022-09-20] MEDS: Pantoprazole 40 MG Tab.CR PO SCH (07:03)
[2022-09-20] MEDS: Levothyroxine 125 MCG Tab PO SCH (07:03)
[2022-09-20] MEDS: Acetaminophen 325 MG Tab PO SCH ×2 (08:02→21:04)
[2022-09-20] MEDS: Magnesium Oxide 400 MG Tab PO SCH (08:02)
[2022-09-20] MEDS: Metoprolol Tartrate 25 MG Tab PO SCH ×2 (08:03→21:03)
[2022-09-20] MEDS: Cholecalciferol (Vitamin D3) 25 MCG Tab PO SCH (08:03)
[2022-09-20] MEDS: Citalopram 10 MG Tab PO SCH (08:06)
[2022-09-20] MEDS: Isosorbide Mononitrate 30 MG Tab.ER PO SCH (08:06)
[2022-09-20] MEDS: Insulin Lispro 100 Unit/ML 3 ML KwikPen SUBCUT SCH ×4 (08:08→21:05)
[2022-09-20] MEDS: Formoterol/Mometasone 200-5 MCG 8.8 GM Inhaler IH SCH ×2 (08:30→20:36)
[2022-09-20] MEDS: Tiotropium Bromide 4 GM Inhalation Spray (2.5mcg/1 dose; 10 doses) INH SCH (08:30)
[2022-09-20] MEDS: Enoxaparin 40 MG/0.4 ML Syringe SUBCUT SCH (20:34)
[2022-09-20] MEDS: rOPINIRole 1 MG Tab PO SCH (21:01)
[2022-09-20] MEDS: Donepezil 10 MG Tab PO SCH (21:03)
[2022-09-20] MEDS: Gabapentin 100 MG Cap PO SCH (21:03)
[2022-09-20] MEDS: Gabapentin 600 MG Tab PO SCH (21:03)
[2022-09-20] MEDS: QUEtiapine 100 MG Tab PO SCH (21:04)
[2022-09-20] MEDS: atorvaSTATin 40 MG Tab PO SCH (21:04)
[2022-09-20] MEDS: Montelukast 10 MG Tab PO SCH (21:04)
[2022-09-21] MEDS: Levothyroxine 125 MCG Tab PO SCH (06:58)
[2022-09-21] MEDS: Pantoprazole 40 MG Tab.CR PO SCH (06:59)
[2022-09-21] MEDS: Insulin Lispro 100 Unit/ML 3 ML KwikPen SUBCUT SCH ×4 (07:59→20:35)
[2022-09-21] MEDS: Metoprolol Tartrate 25 MG Tab PO SCH ×2 (08:00→20:42)
[2022-09-21] MEDS: Cholecalciferol (Vitamin D3) 25 MCG Tab PO SCH (08:00)
[2022-09-21] MEDS: Magnesium Oxide 400 MG Tab PO SCH (08:00)
[2022-09-21] MEDS: Isosorbide Mononitrate 30 MG Tab.ER PO SCH (08:02)
[2022-09-21] MEDS: Acetaminophen 325 MG Tab PO SCH ×2 (08:02→20:40)
[2022-09-21] MEDS: Citalopram 10 MG Tab PO SCH (08:03)
[2022-09-21] MEDS: Tiotropium Bromide 4 GM Inhalation Spray (2.5mcg/1 dose; 10 doses) INH SCH (09:42)
[2022-09-21] MEDS: Formoterol/Mometasone 200-5 MCG 8.8 GM Inhaler IH SCH ×2 (09:42→21:07)
[2022-09-21] MEDS ORDERED: Insulin Glargine,Human Rec. Analog 100 Units/ML 3 ML Pen SUBCUT SCH (13:45)
[2022-09-21] MEDS: rOPINIRole 1 MG Tab PO SCH (20:39)
[2022-09-21] MEDS: Montelukast 10 MG Tab PO SCH (20:40)
[2022-09-21] MEDS: atorvaSTATin 40 MG Tab PO SCH (20:40)
[2022-09-21] MEDS: Donepezil 10 MG Tab PO SCH (20:41)
[2022-09-21] MEDS: QUEtiapine 100 MG Tab PO SCH (20:42)
[2022-09-21] MEDS: Gabapentin 100 MG Cap PO SCH (20:42)
[2022-09-21] MEDS: Gabapentin 600 MG Tab PO SCH (20:42)
[2022-09-21] MEDS: Enoxaparin 40 MG/0.4 ML Syringe SUBCUT SCH (20:43)
[2022-09-22] MEDS: Levothyroxine 125 MCG Tab PO SCH (06:35)
[2022-09-22] MEDS: Pantoprazole 40 MG Tab.CR PO SCH (06:35)
[2022-09-22] MEDS: Isosorbide Mononitrate 30 MG Tab.ER PO SCH (08:04)
[2022-09-22] MEDS: Magnesium Oxide 400 MG Tab PO SCH (08:05)
[2022-09-22] MEDS: Metoprolol Tartrate 25 MG Tab PO SCH ×2 (08:06→20:37)
[2022-09-22] MEDS: Insulin Lispro 100 Unit/ML 3 ML KwikPen SUBCUT SCH ×2 (08:06→12:48)
[2022-09-22] MEDS: Citalopram 10 MG Tab PO SCH (08:06)
[2022-09-22] MEDS: Cholecalciferol (Vitamin D3) 25 MCG Tab PO SCH (08:06)
[2022-09-22] MEDS: Acetaminophen 325 MG Tab PO SCH ×2 (08:06→20:35)
[2022-09-22] MEDS: Formoterol/Mometasone 200-5 MCG 8.8 GM Inhaler IH SCH ×2 (20:23→22:44)
[2022-09-22] MEDS: atorvaSTATin 40 MG Tab PO SCH (20:35)
[2022-09-22] MEDS: rOPINIRole 1 MG Tab PO SCH (20:35)
[2022-09-22] MEDS: Gabapentin 100 MG Cap PO SCH (20:36)
[2022-09-22] MEDS: QUEtiapine 100 MG Tab PO SCH (20:36)
[2022-09-22] MEDS: Montelukast 10 MG Tab PO SCH (20:36)
[2022-09-22] MEDS: Gabapentin 600 MG Tab PO SCH (20:36)
[2022-09-22] MEDS: Donepezil 10 MG Tab PO SCH (20:37)
[2022-09-22] MEDS: Enoxaparin 40 MG/0.4 ML Syringe SUBCUT SCH (20:55)
[2022-09-22] MEDS: Insulin Glargine,Human Rec. Analog 100 Units/ML 3 ML Pen SUBCUT SCH (21:00)
[2022-09-22] MEDS ORDERED: Insulin Glargine,Human Rec. Analog 100 Units/ML 3 ML Pen SUBCUT SCH (21:00)
[2022-09-22] MEDS: Tiotropium Bromide 4 GM Inhalation Spray (2.5mcg/1 dose; 10 doses) INH SCH (22:44)
[2022-09-23] MEDS: Levothyroxine 125 MCG Tab PO SCH (06:37)
[2022-09-23] MEDS: Pantoprazole 40 MG Tab.CR PO SCH (06:38)
[2022-09-23] MEDS: Insulin Glargine,Human Rec. Analog 100 Units/ML 3 ML Pen SUBCUT SCH ×2 (09:52→20:33)
[2022-09-23] MEDS: Isosorbide Mononitrate 30 MG Tab.ER PO SCH (09:54)
[2022-09-23] MEDS: Magnesium Oxide 400 MG Tab PO SCH (09:55)
[2022-09-23] MEDS: Cholecalciferol (Vitamin D3) 25 MCG Tab PO SCH (09:55)
[2022-09-23] MEDS: Acetaminophen 325 MG Tab PO SCH ×2 (09:56→20:34)
[2022-09-23] MEDS: Metoprolol Tartrate 25 MG Tab PO SCH ×2 (09:56→20:35)
[2022-09-23] MEDS: Citalopram 20 MG Tab PO SCH (09:56)
[2022-09-23] MEDS: Tiotropium Bromide 4 GM Inhalation Spray (2.5mcg/1 dose; 10 doses) INH SCH (10:30)
[2022-09-23] MEDS: Formoterol/Mometasone 200-5 MCG 8.8 GM Inhaler IH SCH ×2 (10:30→20:26)
[2022-09-23] MEDS: rOPINIRole 1 MG Tab PO SCH (20:34)
[2022-09-23] MEDS: Gabapentin 100 MG Cap PO SCH (20:35)
[2022-09-23] MEDS: atorvaSTATin 40 MG Tab PO SCH (20:36)
[2022-09-23] MEDS: Montelukast 10 MG Tab PO SCH (20:36)
[2022-09-23] MEDS: Donepezil 10 MG Tab PO SCH (20:36)
[2022-09-23] MEDS: Gabapentin 600 MG Tab PO SCH (20:36)
[2022-09-23] MEDS: QUEtiapine 100 MG Tab PO SCH (20:36)
[2022-09-23] MEDS: Enoxaparin 40 MG/0.4 ML Syringe SUBCUT SCH (20:37)
[2022-09-24] MEDS: Pantoprazole 40 MG Tab.CR PO SCH (06:02)
[2022-09-24] MEDS: Levothyroxine 125 MCG Tab PO SCH (06:02)
[2022-09-24] MEDS: Cholecalciferol (Vitamin D3) 25 MCG Tab PO SCH (08:06)
[2022-09-24] MEDS: Magnesium Oxide 400 MG Tab PO SCH (08:07)
[2022-09-24] MEDS: Citalopram 20 MG Tab PO SCH (08:07)
[2022-09-24] MEDS: Metoprolol Tartrate 25 MG Tab PO SCH ×2 (08:07→21:00)
[2022-09-24] MEDS: Isosorbide Mononitrate 30 MG Tab.ER PO SCH (08:07)
[2022-09-24] MEDS: Insulin Glargine,Human Rec. Analog 100 Units/ML 3 ML Pen SUBCUT SCH ×2 (08:10→21:03)
[2022-09-24] MEDS: Acetaminophen 325 MG Tab PO SCH ×2 (08:13→20:58)
[2022-09-24] MEDS: Formoterol/Mometasone 200-5 MCG 8.8 GM Inhaler IH SCH ×2 (08:53→20:28)
[2022-09-24] MEDS: Tiotropium Bromide 4 GM Inhalation Spray (2.5mcg/1 dose; 10 doses) INH SCH (08:53)
[2022-09-24] MEDS: rOPINIRole 1 MG Tab PO SCH (20:56)
[2022-09-24] MEDS: Enoxaparin 40 MG/0.4 ML Syringe SUBCUT SCH (20:56)
[2022-09-24] MEDS: Gabapentin 100 MG Cap PO SCH (20:57)
[2022-09-24] MEDS: Gabapentin 600 MG Tab PO SCH (20:57)
[2022-09-24] MEDS: atorvaSTATin 40 MG Tab PO SCH (20:58)
[2022-09-24] MEDS: Montelukast 10 MG Tab PO SCH (20:59)
[2022-09-24] MEDS: QUEtiapine 100 MG Tab PO SCH (21:00)
[2022-09-24] MEDS: Donepezil 10 MG Tab PO SCH (21:00)
[2022-09-25] MEDS: Pantoprazole 40 MG Tab.CR PO SCH (06:04)
[2022-09-25] MEDS: Levothyroxine 125 MCG Tab PO SCH (06:04)
[2022-09-25] MEDS: Insulin Glargine,Human Rec. Analog 100 Units/ML 3 ML Pen SUBCUT SCH ×2 (08:35→20:46)
[2022-09-25] MEDS: Acetaminophen 325 MG Tab PO SCH ×3 (08:38→20:44)
[2022-09-25] MEDS: Magnesium Oxide 400 MG Tab PO SCH (08:38)
[2022-09-25] MEDS: Citalopram 20 MG Tab PO SCH ×2 (08:38→10:29)
[2022-09-25] MEDS: Cholecalciferol (Vitamin D3) 25 MCG Tab PO SCH ×2 (08:38→10:29)
[2022-09-25] MEDS: Metoprolol Tartrate 25 MG Tab PO SCH ×3 (08:47→20:45)
[2022-09-25] MEDS: Tiotropium Bromide 4 GM Inhalation Spray (2.5mcg/1 dose; 10 doses) INH SCH (09:36)
[2022-09-25] MEDS: Formoterol/Mometasone 200-5 MCG 8.8 GM Inhaler IH SCH ×2 (09:36→20:19)
[2022-09-25] MEDS: Isosorbide Mononitrate 30 MG Tab.ER PO SCH (10:28)
[2022-09-25] MEDS: atorvaSTATin 40 MG Tab PO SCH (20:44)
[2022-09-25] MEDS: QUEtiapine 100 MG Tab PO SCH (20:44)
[2022-09-25] MEDS: Montelukast 10 MG Tab PO SCH (20:44)
[2022-09-25] MEDS: rOPINIRole 1 MG Tab PO SCH (20:44)
[2022-09-25] MEDS: Gabapentin 600 MG Tab PO SCH (20:45)
[2022-09-25] MEDS: Gabapentin 100 MG Cap PO SCH (20:45)
[2022-09-25] MEDS: Donepezil 10 MG Tab PO SCH (20:46)
[2022-09-25] MEDS: Enoxaparin 40 MG/0.4 ML Syringe SUBCUT SCH (20:56)
[2022-09-26] MEDS: Levothyroxine 125 MCG Tab PO SCH (06:10)
[2022-09-26] MEDS: Pantoprazole 40 MG Tab.CR PO SCH (06:11)
[2022-09-26] MEDS: Tiotropium Bromide 4 GM Inhalation Spray (2.5mcg/1 dose; 10 doses) INH SCH (08:44)
[2022-09-26] MEDS: Formoterol/Mometasone 200-5 MCG 8.8 GM Inhaler IH SCH ×2 (08:44→20:42)
[2022-09-26] MEDS: Magnesium Oxide 400 MG Tab PO SCH (09:56)
[2022-09-26] MEDS: Metoprolol Tartrate 25 MG Tab PO SCH ×2 (09:56→21:05)
[2022-09-26] MEDS: Acetaminophen 325 MG Tab PO SCH ×2 (09:56→21:04)
[2022-09-26] MEDS: Cholecalciferol (Vitamin D3) 25 MCG Tab PO SCH (09:57)
[2022-09-26] MEDS: Isosorbide Mononitrate 30 MG Tab.ER PO SCH (09:57)
[2022-09-26] MEDS: Insulin Glargine,Human Rec. Analog 100 Units/ML 3 ML Pen SUBCUT SCH ×2 (09:58→21:07)
[2022-09-26] MEDS: Citalopram 20 MG Tab PO SCH (10:04)
[2022-09-26] MEDS: Donepezil 10 MG Tab PO SCH (21:04)
[2022-09-26] MEDS: atorvaSTATin 40 MG Tab PO SCH (21:04)
[2022-09-26] MEDS: rOPINIRole 1 MG Tab PO SCH (21:04)
[2022-09-26] MEDS: Gabapentin 600 MG Tab PO SCH (21:04)
[2022-09-26] MEDS: Montelukast 10 MG Tab PO SCH (21:04)
[2022-09-26] MEDS: Gabapentin 100 MG Cap PO SCH (21:05)
[2022-09-26] MEDS: QUEtiapine 100 MG Tab PO SCH (21:05)
[2022-09-26] MEDS: Enoxaparin 40 MG/0.4 ML Syringe SUBCUT SCH (21:13)
[2022-09-27] MEDS: Pantoprazole 40 MG Tab.CR PO SCH (06:53)
[2022-09-27] MEDS: Levothyroxine 125 MCG Tab PO SCH (06:54)
[2022-09-27] MEDS: Formoterol/Mometasone 200-5 MCG 8.8 GM Inhaler IH SCH ×2 (08:00→20:01)
[2022-09-27] MEDS: Tiotropium Bromide 4 GM Inhalation Spray (2.5mcg/1 dose; 10 doses) INH SCH (08:00)
[2022-09-27] MEDS: Acetaminophen 325 MG Tab PO SCH ×2 (09:37→22:35)
[2022-09-27] MEDS: Citalopram 20 MG Tab PO SCH (09:37)
[2022-09-27] MEDS: Magnesium Oxide 400 MG Tab PO SCH (09:37)
[2022-09-27] MEDS: Isosorbide Mononitrate 30 MG Tab.ER PO SCH (09:39)
[2022-09-27] MEDS: Metoprolol Tartrate 25 MG Tab PO SCH ×2 (09:39→22:32)
[2022-09-27] MEDS: Cholecalciferol (Vitamin D3) 25 MCG Tab PO SCH (09:40)
[2022-09-27] MEDS: Insulin Glargine,Human Rec. Analog 100 Units/ML 3 ML Pen SUBCUT SCH ×2 (09:41→22:30)
[2022-09-27] MEDS: rOPINIRole 1 MG Tab PO SCH (22:33)
[2022-09-27] MEDS: Montelukast 10 MG Tab PO SCH (22:33)
[2022-09-27] MEDS: Gabapentin 600 MG Tab PO SCH (22:34)
[2022-09-27] MEDS: QUEtiapine 100 MG Tab PO SCH (22:34)
[2022-09-27] MEDS: Donepezil 10 MG Tab PO SCH (22:34)
[2022-09-27] MEDS: atorvaSTATin 40 MG Tab PO SCH (22:34)
[2022-09-27] MEDS: Gabapentin 100 MG Cap PO SCH (22:34)
[2022-09-27] MEDS: Enoxaparin 40 MG/0.4 ML Syringe SUBCUT SCH (22:35)
[2022-09-28] MEDS: Pantoprazole 40 MG Tab.CR PO SCH (06:48)
[2022-09-28] MEDS: Levothyroxine 125 MCG Tab PO SCH (06:49)
[2022-09-28] MEDS: Formoterol/Mometasone 200-5 MCG 8.8 GM Inhaler IH SCH ×2 (08:25→20:29)
[2022-09-28] MEDS: Tiotropium Bromide 4 GM Inhalation Spray (2.5mcg/1 dose; 10 doses) INH SCH (08:25)
[2022-09-28] MEDS: Cholecalciferol (Vitamin D3) 25 MCG Tab PO SCH (08:56)
[2022-09-28] MEDS: Acetaminophen 325 MG Tab PO SCH ×2 (08:56→21:25)
[2022-09-28] MEDS: Magnesium Oxide 400 MG Tab PO SCH (08:56)
[2022-09-28] MEDS: Citalopram 20 MG Tab PO SCH (09:05)
[2022-09-28] MEDS: Metoprolol Tartrate 25 MG Tab PO SCH ×2 (09:06→21:21)
[2022-09-28] MEDS: Isosorbide Mononitrate 30 MG Tab.ER PO SCH (09:07)
[2022-09-28] MEDS: Insulin Glargine,Human Rec. Analog 100 Units/ML 3 ML Pen SUBCUT SCH ×2 (09:09→21:20)
[2022-09-28] MEDS: rOPINIRole 1 MG Tab PO SCH (21:24)
[2022-09-28] MEDS: QUEtiapine 100 MG Tab PO SCH (21:25)
[2022-09-28] MEDS: Gabapentin 100 MG Cap PO SCH (21:25)
[2022-09-28] MEDS: Montelukast 10 MG Tab PO SCH (21:25)
[2022-09-28] MEDS: Gabapentin 600 MG Tab PO SCH (21:25)
[2022-09-28] MEDS: Donepezil 10 MG Tab PO SCH (21:26)
[2022-09-28] MEDS: Enoxaparin 40 MG/0.4 ML Syringe SUBCUT SCH (21:26)
[2022-09-28] MEDS: atorvaSTATin 40 MG Tab PO SCH (21:26)
[2022-09-29] MEDS: Levothyroxine 125 MCG Tab PO SCH (07:24)
[2022-09-29] MEDS: Pantoprazole 40 MG Tab.CR PO SCH (07:24)
[2022-09-29] MEDS: Acetaminophen 325 MG Tab PO SCH ×2 (09:33→20:48)
[2022-09-29] MEDS: Isosorbide Mononitrate 30 MG Tab.ER PO SCH (09:34)
[2022-09-29] MEDS: Citalopram 20 MG Tab PO SCH (09:34)
[2022-09-29] MEDS: Insulin Glargine,Human Rec. Analog 100 Units/ML 3 ML Pen SUBCUT SCH ×2 (09:36→21:08)
[2022-09-29] MEDS: Metoprolol Tartrate 25 MG Tab PO SCH ×2 (09:38→20:48)
[2022-09-29] MEDS: Cholecalciferol (Vitamin D3) 25 MCG Tab PO SCH (09:39)
[2022-09-29] MEDS: Magnesium Oxide 400 MG Tab PO SCH (09:39)
[2022-09-29] MEDS: Tiotropium Bromide 4 GM Inhalation Spray (2.5mcg/1 dose; 10 doses) INH SCH (09:49)
[2022-09-29] MEDS: Formoterol/Mometasone 200-5 MCG 8.8 GM Inhaler IH SCH ×2 (09:49→20:27)
[2022-09-29] MEDS: rOPINIRole 1 MG Tab PO SCH ×2 (14:01→20:49)
[2022-09-29] MEDS: Enoxaparin 40 MG/0.4 ML Syringe SUBCUT SCH (20:47)
[2022-09-29] MEDS: Montelukast 10 MG Tab PO SCH (20:48)
[2022-09-29] MEDS: Donepezil 10 MG Tab PO SCH (20:48)
[2022-09-29] MEDS: Gabapentin 100 MG Cap PO SCH (20:48)
[2022-09-29] MEDS: atorvaSTATin 40 MG Tab PO SCH (20:49)
[2022-09-29] MEDS: Gabapentin 600 MG Tab PO SCH (20:49)
[2022-09-29] MEDS: QUEtiapine 100 MG Tab PO SCH (21:09)
[2022-09-30] MEDS: Levothyroxine 125 MCG Tab PO SCH (07:09)
[2022-09-30] MEDS: Pantoprazole 40 MG Tab.CR PO SCH (07:09)
[2022-09-30] MEDS: Tiotropium Bromide 4 GM Inhalation Spray (2.5mcg/1 dose; 10 doses) INH SCH (08:19)
[2022-09-30] MEDS: Formoterol/Mometasone 200-5 MCG 8.8 GM Inhaler IH SCH ×2 (08:19→20:19)
[2022-09-30] MEDS: Isosorbide Mononitrate 30 MG Tab.ER PO SCH (09:55)
[2022-09-30] MEDS: Metoprolol Tartrate 25 MG Tab PO SCH ×2 (09:59→20:35)
[2022-09-30] MEDS: Citalopram 20 MG Tab PO SCH (10:00)
[2022-09-30] MEDS: rOPINIRole 1 MG Tab PO SCH ×2 (10:00→20:33)
[2022-09-30] MEDS: Magnesium Oxide 400 MG Tab PO SCH (10:00)
[2022-09-30] MEDS: Acetaminophen 325 MG Tab PO SCH ×2 (10:00→20:34)
[2022-09-30] MEDS: Insulin Glargine,Human Rec. Analog 100 Units/ML 3 ML Pen SUBCUT SCH ×2 (10:01→20:38)
[2022-09-30] MEDS: Cholecalciferol (Vitamin D3) 25 MCG Tab PO SCH (10:01)
[2022-09-30] MEDS: Enoxaparin 40 MG/0.4 ML Syringe SUBCUT SCH (20:00)
[2022-09-30] MEDS: Montelukast 10 MG Tab PO SCH (20:33)
[2022-09-30] MEDS: Gabapentin 100 MG Cap PO SCH (20:34)
[2022-09-30] MEDS: Gabapentin 600 MG Tab PO SCH (20:34)
[2022-09-30] MEDS: Donepezil 10 MG Tab PO SCH (20:35)
[2022-09-30] MEDS: QUEtiapine 100 MG Tab PO SCH (20:35)
[2022-09-30] MEDS: atorvaSTATin 40 MG Tab PO SCH (20:35)
[2022-10-01] MEDS: Levothyroxine 125 MCG Tab PO SCH (06:34)
[2022-10-01] MEDS: Pantoprazole 40 MG Tab.CR PO SCH (06:34)
[2022-10-01] MEDS: rOPINIRole 1 MG Tab PO SCH ×3 (09:09→22:51)
[2022-10-01] MEDS: Acetaminophen 325 MG Tab PO SCH ×2 (09:10→19:59)
[2022-10-01] MEDS: Cholecalciferol (Vitamin D3) 25 MCG Tab PO SCH (09:10)
[2022-10-01] MEDS: Isosorbide Mononitrate 30 MG Tab.ER PO SCH (09:13)
[2022-10-01] MEDS: Insulin Glargine,Human Rec. Analog 100 Units/ML 3 ML Pen SUBCUT SCH ×2 (09:14→22:00)
[2022-10-01] MEDS: Metoprolol Tartrate 25 MG Tab PO SCH ×3 (09:15→22:50)
[2022-10-01] MEDS: Magnesium Oxide 400 MG Tab PO SCH (09:16)
[2022-10-01] MEDS: Citalopram 20 MG Tab PO SCH (09:17)
[2022-10-01] MEDS: Formoterol/Mometasone 200-5 MCG 8.8 GM Inhaler IH SCH ×2 (09:19→20:23)
[2022-10-01] MEDS: Tiotropium Bromide 4 GM Inhalation Spray (2.5mcg/1 dose; 10 doses) INH SCH (09:19)
[2022-10-01] MEDS: Gabapentin 100 MG Cap PO SCH ×2 (19:57→22:51)
[2022-10-01] MEDS: QUEtiapine 100 MG Tab PO SCH ×2 (19:57→22:51)
[2022-10-01] MEDS: Montelukast 10 MG Tab PO SCH ×2 (19:58→22:51)
[2022-10-01] MEDS: Donepezil 10 MG Tab PO SCH ×2 (19:58→22:50)
[2022-10-01] MEDS: Gabapentin 600 MG Tab PO SCH ×2 (19:58→22:51)
[2022-10-01] MEDS: Enoxaparin 40 MG/0.4 ML Syringe SUBCUT SCH (20:02)
[2022-10-01] MEDS: atorvaSTATin 40 MG Tab PO SCH (22:50)
[2022-10-02] MEDS: Levothyroxine 125 MCG Tab PO SCH (05:55)
[2022-10-02] MEDS: Pantoprazole 40 MG Tab.CR PO SCH ×2 (05:55→06:23)
[2022-10-02] MEDS: Formoterol/Mometasone 200-5 MCG 8.8 GM Inhaler IH SCH ×2 (08:18→20:38)
[2022-10-02] MEDS: Tiotropium Bromide 4 GM Inhalation Spray (2.5mcg/1 dose; 10 doses) INH SCH (08:18)
[2022-10-02] MEDS: Metoprolol Tartrate 25 MG Tab PO SCH ×2 (10:30→20:27)
[2022-10-02] MEDS: Isosorbide Mononitrate 30 MG Tab.ER PO SCH (10:31)
[2022-10-02] MEDS: Citalopram 20 MG Tab PO SCH (10:31)
[2022-10-02] MEDS: Acetaminophen 325 MG Tab PO SCH ×2 (10:32→20:26)
[2022-10-02] MEDS: Cholecalciferol (Vitamin D3) 25 MCG Tab PO SCH (10:32)
[2022-10-02] MEDS: Magnesium Oxide 400 MG Tab PO SCH (10:32)
[2022-10-02] MEDS: Insulin Glargine,Human Rec. Analog 100 Units/ML 3 ML Pen SUBCUT SCH ×2 (10:33→20:31)
[2022-10-02] MEDS: rOPINIRole 1 MG Tab PO SCH ×2 (10:33→20:26)
[2022-10-02] MEDS: Enoxaparin 40 MG/0.4 ML Syringe SUBCUT SCH (20:25)
[2022-10-02] MEDS: Gabapentin 100 MG Cap PO SCH (20:26)
[2022-10-02] MEDS: Donepezil 10 MG Tab PO SCH (20:26)
[2022-10-02] MEDS: QUEtiapine 100 MG Tab PO SCH (20:26)
[2022-10-02] MEDS: Gabapentin 600 MG Tab PO SCH (20:26)
[2022-10-02] MEDS: Montelukast 10 MG Tab PO SCH (20:27)
[2022-10-02] MEDS: atorvaSTATin 40 MG Tab PO SCH (20:27)
[2022-10-03] MEDS: Pantoprazole 40 MG Tab.CR PO SCH (07:09)
[2022-10-03] MEDS: Levothyroxine 125 MCG Tab PO SCH (07:09)
[2022-10-03] MEDS: Tiotropium Bromide 4 GM Inhalation Spray (2.5mcg/1 dose; 10 doses) INH SCH (09:53)
[2022-10-03] MEDS: Formoterol/Mometasone 200-5 MCG 8.8 GM Inhaler IH SCH ×2 (09:53→21:20)
[2022-10-03] MEDS: Acetaminophen 325 MG Tab PO SCH ×2 (10:12→21:37)
[2022-10-03] MEDS: Citalopram 20 MG Tab PO SCH (10:13)
[2022-10-03] MEDS: Cholecalciferol (Vitamin D3) 25 MCG Tab PO SCH (10:14)
[2022-10-03] MEDS: Magnesium Oxide 400 MG Tab PO SCH (10:14)
[2022-10-03] MEDS: Metoprolol Tartrate 25 MG Tab PO SCH ×2 (10:15→21:38)
[2022-10-03] MEDS: rOPINIRole 1 MG Tab PO SCH ×2 (10:18→21:37)
[2022-10-03] MEDS: Isosorbide Mononitrate 30 MG Tab.ER PO SCH (10:18)
[2022-10-03] MEDS: Insulin Glargine,Human Rec. Analog 100 Units/ML 3 ML Pen SUBCUT SCH ×2 (10:28→21:41)
[2022-10-03] MEDS: Enoxaparin 40 MG/0.4 ML Syringe SUBCUT SCH (21:09)
[2022-10-03] MEDS: Gabapentin 600 MG Tab PO SCH (21:37)
[2022-10-03] MEDS: Montelukast 10 MG Tab PO SCH (21:37)
[2022-10-03] MEDS: QUEtiapine 100 MG Tab PO SCH (21:38)
[2022-10-03] MEDS: atorvaSTATin 40 MG Tab PO SCH (21:38)
[2022-10-03] MEDS: Gabapentin 100 MG Cap PO SCH (21:38)
[2022-10-03] MEDS: Donepezil 10 MG Tab PO SCH (21:38)
[2022-10-04] MEDS: Pantoprazole 40 MG Tab.CR PO SCH (07:34)
[2022-10-04] MEDS: Levothyroxine 125 MCG Tab PO SCH (07:35)
[2022-10-04] MEDS: Citalopram 20 MG Tab PO SCH (09:00)
[2022-10-04] MEDS: Metoprolol Tartrate 25 MG Tab PO SCH ×2 (09:00→21:15)
[2022-10-04] MEDS: Magnesium Oxide 400 MG Tab PO SCH (09:00)
[2022-10-04] MEDS: Acetaminophen 325 MG Tab PO SCH ×2 (09:00→20:34)
[2022-10-04] MEDS: Isosorbide Mononitrate 30 MG Tab.ER PO SCH (09:01)
[2022-10-04] MEDS: Cholecalciferol (Vitamin D3) 25 MCG Tab PO SCH (09:04)
[2022-10-04] MEDS: rOPINIRole 1 MG Tab PO SCH ×2 (09:10→20:33)
[2022-10-04] MEDS: Insulin Glargine,Human Rec. Analog 100 Units/ML 3 ML Pen SUBCUT SCH ×2 (09:34→21:14)
[2022-10-04] MEDS: Tiotropium Bromide 4 GM Inhalation Spray (2.5mcg/1 dose; 10 doses) INH SCH (10:20)
[2022-10-04] MEDS: Formoterol/Mometasone 200-5 MCG 8.8 GM Inhaler IH SCH ×2 (10:20→20:35)
[2022-10-04] MEDS: Gabapentin 600 MG Tab PO SCH (20:33)
[2022-10-04] MEDS: QUEtiapine 100 MG Tab PO SCH (20:33)
[2022-10-04] MEDS: Montelukast 10 MG Tab PO SCH (20:34)
[2022-10-04] MEDS: Gabapentin 100 MG Cap PO SCH (20:34)
[2022-10-04] MEDS: Donepezil 10 MG Tab PO SCH (20:34)
[2022-10-04] MEDS: Enoxaparin 40 MG/0.4 ML Syringe SUBCUT SCH (20:41)
[2022-10-04] MEDS: atorvaSTATin 40 MG Tab PO SCH (21:15)
[2022-10-05] MEDS: Levothyroxine 125 MCG Tab PO SCH (06:14)
[2022-10-05] MEDS: Pantoprazole 40 MG Tab.CR PO SCH (06:14)
[2022-10-05] MEDS: Cholecalciferol (Vitamin D3) 25 MCG Tab PO SCH (08:20)
[2022-10-05] MEDS: Magnesium Oxide 400 MG Tab PO SCH (08:21)
[2022-10-05] MEDS: Acetaminophen 325 MG Tab PO SCH ×2 (08:22→20:03)
[2022-10-05] MEDS: rOPINIRole 1 MG Tab PO SCH ×2 (08:23→20:00)
[2022-10-05] MEDS: Metoprolol Tartrate 25 MG Tab PO SCH ×2 (08:24→20:01)
[2022-10-05] MEDS: Isosorbide Mononitrate 30 MG Tab.ER PO SCH (08:25)
[2022-10-05] MEDS: Citalopram 20 MG Tab PO SCH (08:27)
[2022-10-05] MEDS: Insulin Glargine,Human Rec. Analog 100 Units/ML 3 ML Pen SUBCUT SCH ×2 (09:30→20:11)
[2022-10-05] MEDS: Tiotropium Bromide 4 GM Inhalation Spray (2.5mcg/1 dose; 10 doses) INH SCH (11:22)
[2022-10-05] MEDS: Formoterol/Mometasone 200-5 MCG 8.8 GM Inhaler IH SCH ×2 (11:22→22:19)
[2022-10-05] MEDS: Montelukast 10 MG Tab PO SCH (20:01)
[2022-10-05] MEDS: Donepezil 10 MG Tab PO SCH (20:01)
[2022-10-05] MEDS: Gabapentin 600 MG Tab PO SCH (20:01)
[2022-10-05] MEDS: QUEtiapine 100 MG Tab PO SCH (20:01)
[2022-10-05] MEDS: atorvaSTATin 40 MG Tab PO SCH (20:03)
[2022-10-05] MEDS: Gabapentin 100 MG Cap PO SCH (20:03)
[2022-10-05] MEDS: Enoxaparin 40 MG/0.4 ML Syringe SUBCUT SCH (20:34)
[2022-10-05] MEDS ORDERED: OLANZapine 10 MG Vial IM ONE (21:20)
[2022-10-06] MEDS: Pantoprazole 40 MG Tab.CR PO SCH (06:24)
[2022-10-06] MEDS: Levothyroxine 125 MCG Tab PO SCH (06:24)
[2022-10-06] MEDS: Isosorbide Mononitrate 30 MG Tab.ER PO SCH (09:00)
[2022-10-06] MEDS: Insulin Glargine,Human Rec. Analog 100 Units/ML 3 ML Pen SUBCUT SCH ×2 (09:00→22:19)
[2022-10-06] MEDS: Metoprolol Tartrate 25 MG Tab PO SCH ×2 (09:00→23:00)
[2022-10-06] MEDS: Formoterol/Mometasone 200-5 MCG 8.8 GM Inhaler IH SCH ×2 (09:26→20:39)
[2022-10-06] MEDS: Tiotropium Bromide 4 GM Inhalation Spray (2.5mcg/1 dose; 10 doses) INH SCH (09:27)
[2022-10-06] MEDS: Citalopram 20 MG Tab PO SCH (19:32)
[2022-10-06] MEDS: Magnesium Oxide 400 MG Tab PO SCH (19:35)
[2022-10-06] MEDS: Donepezil 10 MG Tab PO SCH (23:00)
[2022-10-06] MEDS: Acetaminophen 325 MG Tab PO SCH ×2 (23:00→23:36)
[2022-10-06] MEDS: rOPINIRole 1 MG Tab PO SCH (23:00)
[2022-10-06] MEDS: atorvaSTATin 40 MG Tab PO SCH (23:00)
[2022-10-06] MEDS: QUEtiapine 100 MG Tab PO SCH (23:00)
[2022-10-06] MEDS: Gabapentin 100 MG Cap PO SCH (23:00)
[2022-10-06] MEDS: Gabapentin 600 MG Tab PO SCH (23:00)
[2022-10-06] MEDS: Montelukast 10 MG Tab PO SCH (23:00)
[2022-10-06] MEDS: Cholecalciferol (Vitamin D3) 25 MCG Tab PO SCH (23:36)
[2022-10-06] MEDS: Enoxaparin 40 MG/0.4 ML Syringe SUBCUT SCH (23:37)
[2022-10-07] MEDS: rOPINIRole 1 MG Tab PO SCH ×2 (03:38→20:52)
[2022-10-07] MEDS: Levothyroxine 125 MCG Tab PO SCH (06:47)
[2022-10-07] MEDS: Pantoprazole 40 MG Tab.CR PO SCH (06:47)
[2022-10-07] MEDS: Metoprolol Tartrate 25 MG Tab PO SCH ×2 (09:00→20:52)
[2022-10-07] MEDS: Formoterol/Mometasone 200-5 MCG 8.8 GM Inhaler IH SCH ×2 (10:00→21:07)
[2022-10-07] MEDS: Tiotropium Bromide 4 GM Inhalation Spray (2.5mcg/1 dose; 10 doses) INH SCH (10:00)
[2022-10-07] MEDS: Acetaminophen 325 MG Tab PO SCH ×2 (10:33→20:52)
[2022-10-07] MEDS: Isosorbide Mononitrate 30 MG Tab.ER PO SCH (10:34)
[2022-10-07] MEDS: Citalopram 20 MG Tab PO SCH (10:39)
[2022-10-07] MEDS: Magnesium Oxide 400 MG Tab PO SCH (10:39)
[2022-10-07] MEDS: Cholecalciferol (Vitamin D3) 25 MCG Tab PO SCH (10:40)
[2022-10-07] MEDS: Insulin Glargine,Human Rec. Analog 100 Units/ML 3 ML Pen SUBCUT SCH ×2 (10:40→21:01)
[2022-10-07] MEDS: Gabapentin 600 MG Tab PO SCH (20:52)
[2022-10-07] MEDS: Gabapentin 100 MG Cap PO SCH (20:52)
[2022-10-07] MEDS: Montelukast 10 MG Tab PO SCH (20:52)
[2022-10-07] MEDS: atorvaSTATin 40 MG Tab PO SCH (20:53)
[2022-10-07] MEDS: QUEtiapine 100 MG Tab PO SCH (20:53)
[2022-10-07] MEDS: Enoxaparin 40 MG/0.4 ML Syringe SUBCUT SCH (20:54)
[2022-10-07] MEDS: Donepezil 10 MG Tab PO SCH (21:01)
[2022-10-08] MEDS: Levothyroxine 125 MCG Tab PO SCH (06:47)
[2022-10-08] MEDS: Pantoprazole 40 MG Tab.CR PO SCH (06:47)
[2022-10-08] MEDS: Acetaminophen 325 MG Tab PO SCH ×2 (10:18→20:23)
[2022-10-08] MEDS: Magnesium Oxide 400 MG Tab PO SCH (10:18)
[2022-10-08] MEDS: Cholecalciferol (Vitamin D3) 25 MCG Tab PO SCH (10:18)
[2022-10-08] MEDS: Citalopram 20 MG Tab PO SCH (10:19)
[2022-10-08] MEDS: rOPINIRole 1 MG Tab PO SCH ×3 (10:19→20:22)
[2022-10-08] MEDS: Insulin Glargine,Human Rec. Analog 100 Units/ML 3 ML Pen SUBCUT SCH ×2 (10:21→20:35)
[2022-10-08] MEDS: Isosorbide Mononitrate 30 MG Tab.ER PO SCH (10:23)
[2022-10-08] MEDS: Metoprolol Tartrate 25 MG Tab PO SCH ×2 (10:23→20:23)
[2022-10-08] MEDS: Tiotropium Bromide 4 GM Inhalation Spray (2.5mcg/1 dose; 10 doses) INH SCH (10:30)
[2022-10-08] MEDS: Formoterol/Mometasone 200-5 MCG 8.8 GM Inhaler IH SCH ×2 (10:30→20:05)
[2022-10-08] MEDS: Gabapentin 100 MG Cap PO SCH (20:22)
[2022-10-08] MEDS: Enoxaparin 40 MG/0.4 ML Syringe SUBCUT SCH (20:22)
[2022-10-08] MEDS: Montelukast 10 MG Tab PO SCH (20:23)
[2022-10-08] MEDS: Gabapentin 600 MG Tab PO SCH (20:23)
[2022-10-08] MEDS: QUEtiapine 100 MG Tab PO SCH (20:23)
[2022-10-08] MEDS: Donepezil 10 MG Tab PO SCH (20:23)
[2022-10-08] MEDS: atorvaSTATin 40 MG Tab PO SCH (20:23)
[2022-10-09] MEDS: Pantoprazole 40 MG Tab.CR PO SCH (06:50)
[2022-10-09] MEDS: Levothyroxine 125 MCG Tab PO SCH (06:50)
[2022-10-09] MEDS: Cholecalciferol (Vitamin D3) 25 MCG Tab PO SCH (09:30)
[2022-10-09] MEDS: Acetaminophen 325 MG Tab PO SCH ×2 (09:30→21:41)
[2022-10-09] MEDS: Citalopram 20 MG Tab PO SCH (09:31)
[2022-10-09] MEDS: Magnesium Oxide 400 MG Tab PO SCH (09:31)
[2022-10-09] MEDS: rOPINIRole 1 MG Tab PO SCH ×2 (09:32→21:40)
[2022-10-09] MEDS: Insulin Glargine,Human Rec. Analog 100 Units/ML 3 ML Pen SUBCUT SCH ×2 (09:32→21:37)
[2022-10-09] MEDS: Metoprolol Tartrate 25 MG Tab PO SCH ×2 (09:44→21:40)
[2022-10-09] MEDS: Formoterol/Mometasone 200-5 MCG 8.8 GM Inhaler IH SCH ×2 (10:35→20:03)
[2022-10-09] MEDS: Tiotropium Bromide 4 GM Inhalation Spray (2.5mcg/1 dose; 10 doses) INH SCH (10:35)
[2022-10-09] MEDS: Gabapentin 600 MG Tab PO SCH (21:40)
[2022-10-09] MEDS: Montelukast 10 MG Tab PO SCH (21:40)
[2022-10-09] MEDS: atorvaSTATin 40 MG Tab PO SCH (21:40)
[2022-10-09] MEDS: Donepezil 10 MG Tab PO SCH (21:41)
[2022-10-09] MEDS: Gabapentin 100 MG Cap PO SCH (21:41)
[2022-10-09] MEDS: Enoxaparin 40 MG/0.4 ML Syringe SUBCUT SCH (21:42)
[2022-10-09] MEDS: QUEtiapine 100 MG Tab PO SCH (21:46)
[2022-10-10] MEDS: Pantoprazole 40 MG Tab.CR PO SCH (06:31)
[2022-10-10] MEDS: Levothyroxine 125 MCG Tab PO SCH (06:31)
[2022-10-10] MEDS: Tiotropium Bromide 4 GM Inhalation Spray (2.5mcg/1 dose; 10 doses) INH SCH (08:31)
[2022-10-10] MEDS: Formoterol/Mometasone 200-5 MCG 8.8 GM Inhaler IH SCH ×2 (08:31→20:47)
[2022-10-10] MEDS: Insulin Glargine,Human Rec. Analog 100 Units/ML 3 ML Pen SUBCUT SCH ×2 (09:44→21:23)
[2022-10-10] MEDS: Cholecalciferol (Vitamin D3) 25 MCG Tab PO SCH (09:45)
[2022-10-10] MEDS: Isosorbide Mononitrate 30 MG Tab.ER PO SCH ×2 (09:48→09:58)
[2022-10-10] MEDS: Acetaminophen 325 MG Tab PO SCH ×2 (09:49→20:35)
[2022-10-10] MEDS: Citalopram 20 MG Tab PO SCH (09:49)
[2022-10-10] MEDS: rOPINIRole 1 MG Tab PO SCH ×2 (09:50→20:35)
[2022-10-10] MEDS: Magnesium Oxide 400 MG Tab PO SCH (09:50)
[2022-10-10] MEDS: Metoprolol Tartrate 25 MG Tab PO SCH ×2 (09:50→20:36)
[2022-10-10] MEDS: Montelukast 10 MG Tab PO SCH (20:35)
[2022-10-10] MEDS: atorvaSTATin 40 MG Tab PO SCH (20:35)
[2022-10-10] MEDS: Gabapentin 100 MG Cap PO SCH (20:36)
[2022-10-10] MEDS: Gabapentin 600 MG Tab PO SCH (20:36)
[2022-10-10] MEDS: QUEtiapine 100 MG Tab PO SCH (20:36)
[2022-10-10] MEDS: Donepezil 10 MG Tab PO SCH (20:40)
[2022-10-10] MEDS: Enoxaparin 40 MG/0.4 ML Syringe SUBCUT SCH (20:43)
[2022-10-11] MEDS: Levothyroxine 125 MCG Tab PO SCH (06:19)
[2022-10-11] MEDS: Pantoprazole 40 MG Tab.CR PO SCH (06:19)
[2022-10-11] MEDS: Tiotropium Bromide 4 GM Inhalation Spray (2.5mcg/1 dose; 10 doses) INH SCH (08:18)
[2022-10-11] MEDS: Formoterol/Mometasone 200-5 MCG 8.8 GM Inhaler IH SCH ×2 (08:18→21:18)
[2022-10-11] MEDS: Insulin Glargine,Human Rec. Analog 100 Units/ML 3 ML Pen SUBCUT SCH ×2 (10:10→22:20)
[2022-10-11] MEDS: Isosorbide Mononitrate 30 MG Tab.ER PO SCH (10:12)
[2022-10-11] MEDS: Magnesium Oxide 400 MG Tab PO SCH (10:12)
[2022-10-11] MEDS: Metoprolol Tartrate 25 MG Tab PO SCH ×2 (10:12→20:25)
[2022-10-11] MEDS: Citalopram 20 MG Tab PO SCH (10:12)
[2022-10-11] MEDS: Cholecalciferol (Vitamin D3) 25 MCG Tab PO SCH (10:13)
[2022-10-11] MEDS: Acetaminophen 325 MG Tab PO SCH ×2 (10:13→20:30)
[2022-10-11] MEDS: rOPINIRole 1 MG Tab PO SCH ×2 (10:13→20:25)
[2022-10-11] MEDS: QUEtiapine 100 MG Tab PO SCH (20:25)
[2022-10-11] MEDS: Montelukast 10 MG Tab PO SCH (20:25)
[2022-10-11] MEDS: Gabapentin 100 MG Cap PO SCH (20:25)
[2022-10-11] MEDS: Donepezil 10 MG Tab PO SCH (20:25)
[2022-10-11] MEDS: Gabapentin 600 MG Tab PO SCH (20:30)
[2022-10-11] MEDS: Enoxaparin 40 MG/0.4 ML Syringe SUBCUT SCH (20:31)
[2022-10-11] MEDS: atorvaSTATin 40 MG Tab PO SCH (20:31)
[2022-10-12] MEDS: Pantoprazole 40 MG Tab.CR PO SCH (06:08)
[2022-10-12] MEDS: Levothyroxine 125 MCG Tab PO SCH (06:08)
[2022-10-12] MEDS: Formoterol/Mometasone 200-5 MCG 8.8 GM Inhaler IH SCH ×2 (08:05→21:18)
[2022-10-12] MEDS: Tiotropium Bromide 4 GM Inhalation Spray (2.5mcg/1 dose; 10 doses) INH SCH (08:05)
[2022-10-12] MEDS: Magnesium Oxide 400 MG Tab PO SCH (11:00)
[2022-10-12] MEDS: rOPINIRole 1 MG Tab PO SCH ×2 (11:00→20:21)
[2022-10-12] MEDS: Citalopram 20 MG Tab PO SCH (11:01)
[2022-10-12] MEDS: Acetaminophen 325 MG Tab PO SCH ×2 (11:01→20:24)
[2022-10-12] MEDS: Cholecalciferol (Vitamin D3) 25 MCG Tab PO SCH (11:01)
[2022-10-12] MEDS: Metoprolol Tartrate 25 MG Tab PO SCH ×2 (11:08→20:21)
[2022-10-12] MEDS: Isosorbide Mononitrate 30 MG Tab.ER PO SCH (11:08)
[2022-10-12] MEDS: Insulin Glargine,Human Rec. Analog 100 Units/ML 3 ML Pen SUBCUT SCH ×2 (11:17→21:50)
[2022-10-12] MEDS: atorvaSTATin 40 MG Tab PO SCH (20:20)
[2022-10-12] MEDS: Gabapentin 600 MG Tab PO SCH (20:20)
[2022-10-12] MEDS: Gabapentin 100 MG Cap PO SCH (20:20)
[2022-10-12] MEDS: QUEtiapine 100 MG Tab PO SCH (20:20)
[2022-10-12] MEDS: Enoxaparin 40 MG/0.4 ML Syringe SUBCUT SCH (20:26)
[2022-10-12] MEDS: Montelukast 10 MG Tab PO SCH (20:37)
[2022-10-12] MEDS: Donepezil 10 MG Tab PO SCH (20:37)
[2022-10-13] MEDS: Levothyroxine 125 MCG Tab PO SCH (06:02)
[2022-10-13] MEDS: Pantoprazole 40 MG Tab.CR PO SCH (06:02)
[2022-10-13] MEDS: Tiotropium Bromide 4 GM Inhalation Spray (2.5mcg/1 dose; 10 doses) INH SCH (07:59)
[2022-10-13] MEDS: Formoterol/Mometasone 200-5 MCG 8.8 GM Inhaler IH SCH ×2 (07:59→20:04)
[2022-10-13] MEDS: Citalopram 20 MG Tab PO SCH (09:12)
[2022-10-13] MEDS: Isosorbide Mononitrate 30 MG Tab.ER PO SCH (09:13)
[2022-10-13] MEDS: Cholecalciferol (Vitamin D3) 25 MCG Tab PO SCH (09:13)
[2022-10-13] MEDS: Magnesium Oxide 400 MG Tab PO SCH (09:13)
[2022-10-13] MEDS: rOPINIRole 1 MG Tab PO SCH ×2 (09:13→21:18)
[2022-10-13] MEDS: Acetaminophen 325 MG Tab PO SCH ×2 (09:14→21:24)
[2022-10-13] MEDS: Metoprolol Tartrate 25 MG Tab PO SCH ×2 (09:14→21:18)
[2022-10-13] MEDS: Insulin Glargine,Human Rec. Analog 100 Units/ML 3 ML Pen SUBCUT SCH ×2 (09:22→21:17)
[2022-10-13] MEDS: Enoxaparin 40 MG/0.4 ML Syringe SUBCUT SCH (20:38)
[2022-10-13] MEDS: Donepezil 10 MG Tab PO SCH (21:18)
[2022-10-13] MEDS: Gabapentin 100 MG Cap PO SCH (21:18)
[2022-10-13] MEDS: Gabapentin 600 MG Tab PO SCH (21:18)
[2022-10-13] MEDS: QUEtiapine 100 MG Tab PO SCH (21:18)
[2022-10-13] MEDS: atorvaSTATin 40 MG Tab PO SCH (21:18)
[2022-10-13] MEDS: Montelukast 10 MG Tab PO SCH (21:18)
[2022-10-14] MEDS: Pantoprazole 40 MG Tab.CR PO SCH (04:28)
[2022-10-14] MEDS: Levothyroxine 125 MCG Tab PO SCH (04:28)
[2022-10-14] MEDS ORDERED: Haloperidol 5 MG Tab PO ONE (04:30)
[2022-10-14] MEDS: Insulin Glargine,Human Rec. Analog 100 Units/ML 3 ML Pen SUBCUT SCH (04:38)
== END 2022-10-14 05:30 | DRG 57 ==
LOC: JD.ED 15:00 → JD.ICU 09-05 17:53 → JD.MS 09-06 20:16
PROVIDERS: ADMIT Internal Medicine Cardiovascular Disease; ATTEND Internal Medicine
DX: F91.8 Other conduct disorders (principal); G30.9 Alzheimer's disease, unspecified; F02.80 Dementia in other diseases classified elsewhere, unspecified severity, without behavioral disturbance, psychotic disturbance, mood disturbance, and anxiety; F02.B11 Dementia in other diseases classified elsewhere, moderate, with agitation; E11.42 Type 2 diabetes mellitus with diabetic polyneuropathy; F31.60 Bipolar disorder, current episode mixed, unspecified; E03.9 Hypothyroidism, unspecified; Z20.822 Contact with and (suspected) exposure to COVID-19; E78.5 Hyperlipidemia, unspecified; I10 Essential (primary) hypertension; F41.1 Generalized anxiety disorder; G25.81 Restless legs syndrome; J44.9 Chronic obstructive pulmonary disease, unspecified; K21.9 Gastro-esophageal reflux disease without esophagitis; F31.9 Bipolar disorder, unspecified; E11.649 Type 2 diabetes mellitus with hypoglycemia without coma; E78.00 Pure hypercholesterolemia, unspecified; M10.9 Gout, unspecified; Z88.8 Allergy status to other drugs, medicaments and biological substances; Z88.1 Allergy status to other antibiotic agents; Z88.0 Allergy status to penicillin; Z79.890 Hormone replacement therapy; Z79.899 Other long term (current) drug therapy; Z79.4 Long term (current) use of insulin; Z86.16 Personal history of COVID-19
CPT/HCPCS: 36415; 80048; 80053; 80143; 80179; 80306; 80307; 81001; 82306; 82947; 83735; 84439; 84443; 85025; 86592; 87086; 87493; 92523-GN; 94640; 94760; 94761; 97162-GP; 97166-GO; 99223; 99231; 99232; 99233; 99239; 99283; 99285; A9270-GY; J1650; J1815; J1815-GY; J3490; U0002